=== PATIENT | female | born 1985 | race Caucasian/White ===

== ENCOUNTER 2017-12-02 17:09 | Emergency (ER) | payer MEDICAID ==
[2017-12-02 19:16] LABS: BASOPHILS 0.1 % (0-2); HEMATOCRIT 42.3 % (36.0-48.0); HEMOGLOBIN 14.8 g/dL (12-16); IMMATURE GRANULOCYTES 0.3 % (0-5); LYMPHOCYTES 13.6 % (15-50); MCH 32.1 pg (26.0-34.0); MCV 91.8 fL (80.0-100.0); MONOCYTES 14.2 % (2-11); NEUTROPHILS 69.8 % (40-80); PLATELET COUNT 244 10x3/uL (130-400); RBC 4.61 10x6/uL (4.00-5.40); RDW 12.6 % (11.5-14.5); WBC 9.1 10x3/uL (4.8-10.8)
== END 2017-12-02 19:30 | disposition home or self-care (01) ==
LOC: D.ER 17:09
PROVIDERS: Family Medicine
DX: J11.1 Influenza due to unidentified influenza virus with other respiratory manifestations (principal); I10 Essential (primary) hypertension; F17.200 Nicotine dependence, unspecified, uncomplicated

== ENCOUNTER 2018-02-04 21:24 | Emergency (ER) | payer BC | END 2018-02-04 22:20 | disposition home or self-care (01) | LOC: D.ER 21:24 | DX: K08.89 Other specified disorders of teeth and supporting structures (principal); K05.00 Acute gingivitis, plaque induced; I10 Essential (primary) hypertension ==

== ENCOUNTER → 2018-10-25 10:01 | Outpatient (CLI) | payer BC | END | disposition home or self-care (01) | LOC: D.MRI 10:01 | DX: M22.2X1 Patellofemoral disorders, right knee (principal) ==

== ENCOUNTER 2019-10-29 10:27 | Emergency (ER) | payer BC ==
[~2019-10-29] VITALS: Ht 180.3 cm; Wt 104.5 kg
[2019-10-29 10:51] VITALS: BP 146/106; Ht 180.3 cm; Wt 104.5 kg
[2019-10-29] MEDS ORDERED: COREG6.25 MG PO (10:53)
[2019-10-29] MEDS ORDERED: HYZAAR 50-12.51 TAB PO (10:53)
[2019-10-29] MEDS ORDERED: KEFLEX500 MG PO (11:02)
[2019-10-29] MEDS ORDERED: ORAL ANALGESIC9 GM TOPICAL (11:02)
[2019-10-29] MEDS ORDERED: ACETAMINOPHEN500 M1 PO (11:02)
[2019-10-29] MEDS ORDERED: IBUPROFEN800 MG PO (11:02)
== END 2019-10-29 11:11 | disposition home or self-care (01) ==
LOC: D.ER 10:27
DX: K08.89 Other specified disorders of teeth and supporting structures (principal)

== ENCOUNTER 2021-03-31 20:41 | Emergency (ER) | payer BC, OTHER ==
[~2021-03-31] VITALS: Ht 180.3 cm; Wt 106.8 kg
[~2021-03-31 20:41] MED LIST: ACETAMINOPHEN500 M1 PO; COREG6.25 MG PO; HYZAAR 50-12.51 TAB PO; IBUPROFEN800 MG PO; KEFLEX500 MG PO; ORAL ANALGESIC9 GM TOPICAL; PERCOCET 10-321 EAC1 PO; ULTRAM50 MG PO; VISTARIL50 MG PO; VITAMIN D325 MC1 PO
[2021-03-31 20:53] VITALS: Ht 180.3 cm; Wt 106.8 kg
[2021-03-31] MEDS ORDERED: COZAAR100 MG PO (20:56)
[2021-03-31] MEDS ORDERED: HYDROCHLOROTHIA25 MG PO (20:56)
[2021-03-31] MEDS ORDERED: GABAPENTIN300 MG PO (20:57)
[2021-03-31 21:20] LABS: BASOPHILS 3.6 % (0-2); EOSINOPHILS 1.3 % (0-7); HEMOGLOBIN 12.3 g/dL (12-16); LYMPHOCYTES 30.8 % (15-50); MCH 34.3 pg (26.0-34.0); MCHC 34.2 g/dL (31.0-37.0); MCV 100.4 fL (80.0-100.0); MEAN PLATELET VOLUME 7.4 fL (7.4-10.4); MONOCYTES 10.7 % (2-11); NEUTROPHILS 53.6 % (40-80); RBC 3.59 10x6/uL (4.00-5.40); RDW 15.8 % (11.5-14.5); WBC 11.5 10x3/uL (4.8-10.8)
[2021-03-31 21:28] LABS: CALC OSMOLALITY 282 mosm/kg (275-300); CALCIUM 8.8 mg/dL (8.5-10.1); CARBON DIOXIDE 23.1 mmol/L (21.0-32.0); CHLORIDE - SERUM 103 mmol/L (98-107); CREATININE - SERUM 0.6 mg/dL (0.6-1.3); GLUCOSE 103 mg/dL (74-106); SODIUM 142 mmol/L (136-145); UREA NITROGEN 12 mg/dL (7-18); eGFR NON AFRICAN AMERICAN > 90 mL/min (90-120)
[2021-03-31 21:38] LABS: PLATELET COUNT 328 10x3/uL (130-400)
[2021-03-31 21:42] LABS: ALBUMIN 3.4 g/dL (3.4-5.0); ALKALINE PHOSPHATASE 43 U/L (30-120); ALT (SGPT) 18 U/L (10-68); BILIRUBIN - TOTAL 0.47 mg/dL (0.2-1.3); CKMB 0.5 U/L (0.0-3.6); CREATINE KINASE 73 UL (21-215); PRO BNP 77 pg/mL (0-125); PROTEIN - SERUM 6.6 g/dL (6.4-8.2)
[2021-03-31 21:44] LABS: TROPONIN-I < 0.017 ng/mL (0.000-0.060)
[2021-03-31 22:08] LABS: INR 1.04 (0.85-1.17); PROTIME 12.6 SECONDS (11.6-15.0)
[2021-03-31 22:09] LABS: D-DIMER-QUANTITATIVE < 0.27 ug/mLFEU (0.20-0.54)
[2021-03-31 22:14] LABS: BILIRUBIN NEGATIVE (NEGATIVE); KETONE SMALL mg/dL (NEGATIVE); NITRITE NEGATIVE (NEGATIVE); UROBILINOGEN NORMAL mg/dL (< 2)
[2021-03-31 22:17] LABS: UDS - AMPHET NEGATIVE QUAL (NEGATIVE); UDS - BARB NEGATIVE QUAL (NEGATIVE); UDS - BENZO NEGATIVE QUAL (NEGATIVE); UDS - COCAINE NEGATIVE QUAL (NEGATIVE); UDS - OPIATE NEGATIVE QUAL (NEGATIVE); UDS - PCP NEGATIVE QUAL (NEGATIVE); UDS - THC NEGATIVE QUAL (NEGATIVE)
[2021-03-31 23:04] VITALS: BP 131/90
== END 2021-03-31 23:04 | disposition home or self-care (01) ==
LOC: D.ER 20:41
PROVIDERS: Family Medicine
DX: R06.00 Dyspnea, unspecified (principal); E87.6 Hypokalemia; I10 Essential (primary) hypertension; K21.9 Gastro-esophageal reflux disease without esophagitis